=== PATIENT | male | born 1955 | race Caucasian/White ===

== ENCOUNTER 2019-06-10 08:37 | Observation (INO) | payer OTHER ==
[2019-06-10] VITALS (11 sets, daily range): BP systolic 115–130; BP diastolic 63–91
[~2019-06-10] VITALS: Ht 180.3 cm; Wt 124.4 kg
[~2019-06-10 08:37] MED LIST: ALEVE220 MG PO; NEURONTIN 300300 M1 PO; OMEPRAZOLE40 MG PO; SIMVASTATIN40 MG PO; SORINE 80 MG TA80 M1 PO; UNISOM25 MG PO
[2019-06-10] MEDS ORDERED: PROSCAR 5MG TABL5 MG PO (09:11)
[2019-06-10] MEDS ORDERED: ASPIR 8181 MG PO (09:13)
[2019-06-10 09:31] LABS: MCHC 34.1 g/dL (28.0-37.0); MCV 91.1 fL (80.0-100.0); MPV 8.3 fl. (7.2-11.1); RBC 5.16 mil/uL (4.50-6.00); RDW-CV 13.3 % (10.5-14.5); WBC 5.6 thou/uL (4.0-11.0)
[2019-06-10 09:44] LABS: ANION GAP 8 mmol/L (7-16); BUN 18 mg/dL (7-18); CALCIUM 8.8 mg/dL (8.5-10.1); CHLORIDE 107 mmol/L (98-107); CO2 25 mmol/L (21-32); CREATININE 1.1 mg/dL (0.6-1.3); GLUCOSE 110 mg/dL (70-99); POTASSIUM 4.1 mmol/L (3.5-5.1); SERUM ASSESSMENT Clear; SODIUM 140 mmol/L (136-145)
[2019-06-10 09:46] LABS: APTT 25.8 Seconds (25.0-31.3); INR 1.1; PROTIME 10.9 Seconds (9.20-11.50)
[2019-06-10 09:49] LABS: CHOLESTEROL 168 mg/dL (<200); HDL CHOLESTEROL 41 mg/dL (>40); LDL CHOLESTEROL 106 mg/dL (<100); TC:HDL 4.1 Ratio (Not establshd); TRIGLYCERIDE 109 mg/dL (<150); VLDL 22 mg/dL (<40)
--- NOTE | 2019-06-10 16:32 | EKG ---
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1955 Requested By: Dleta Gillespie Order Number: [id number] Reading MD: Aaron Torres Measurements Intervals [place] Rate: 70 P: [place]: QRS: -14 QRSD: 98 T: 18 QT: 432 QTc: 467 Interpretive Statements Atrial fibrillation Low voltage, precordial leads Compared to ECG 02/20/2016 15:48:14 Low QRS voltage now present Sinus rhythm no longer present Electronically Signed On 06-10-2019 16:32:38 CDT by Aaron Torres [email or web address] <ELECTRONICALLY SIGNED> By: Aaron Torres MD, [facility] 06/10/19 1632 0938 0938 Aaron Torres MD, [facility] /EPI
--- NOTE | 2019-06-10 16:34 | EKG ---
[place] [address] ELECTROCARDIOGRAM REPORT Name: DEVAN CRUZ Room: [address] M.R.#: [id number] Admission: 06/10/19 Attend Phys: Delta Gillespie MD, Discharge: Date of : 55 Report #: [id number] THIS REPORT FOR: //name// [facility] Test Date: 2019-06-10 Test Time: 14:40:37 Pat Name: DEVAN CRUZ Department: Room: [facility] Gender: M Access Assoc: : 1955 Requested By: Delta Gillespie Order Number: [id number] Adriano MD: Aaron Torres Measurements Intervals [place] Rate: 57 P: [place]: QRS: -5 QRSD: 91 T: 35 QT: 432 QTc: 421 Interpretive Statements Atrial fibrillation Low voltage, precordial leads Compared to ECG 02/20/2016 15:48:14 Low QRS voltage now present Sinus rhythm no longer present Electronically Signed On 06-10-2019 16:34:32 CDT by Aaron Torres [email or web address] <ELECTRONICALLY SIGNED> By: Aaron Torres MD, FAC 06/10/19 1634 1440 1440 Aaron Torres MD, [facility] /EPI
--- NOTE | 2019-06-10 18:21 | NUR ---
PT ARRIVED TO ROOM 215 AT APPROX 1610 FROM [employer]. PTS RIGHT GROIN SITE SOFT, NO BLEEDING OR HEMATOMA NOTED, DRESSING C/D/I. VSS, AFIB ON THE MONIOTR. REVIEWED HOME MEDS WITH PT AND , PT WANTS TO MAKE SURE HE GETS SOMETHING FOR SLEEP TONIGHT. PT DOES C/O SOME PAIN IN THE RIGHT GROIN/FLANK, HE STATES IT IS BETTER THAN IT WAS IN THE [employer]. DR BRITT AWARE. NO NEW ORDERS. PT A/O X4, ADMISSION HX/ASSESMENT DONE CHARTED. PT USES CALL LIGHT APPROPRIATLY. INSTRUCTED IMMOBALIZATION RIGHT LEG AND BEDREST UNTIL 1945. PT VERBALIZED UNDERSTANDING. WILL CONTINUE TO MONITOR.
[2019-06-11 00:17] VITALS: BP 115/75
[2019-06-11 04:00] VITALS: BP 134/86
--- NOTE | 2019-06-11 04:26 | NUR ---
ASSUMED PT CARE APPROX 1930. PT IS AWAKE AND ORIENTED X4. VSS ON ROOM AIR. PT IS TRACING AFIB ON TELE, REMAINED RATE CONTROLLED THROUGHOUT THIS SHIFT. PT DENIES CHEST PAIN AND PAIN ON POST CARDIAC CATH SITE (RIGHT GROIN), SITE REMAINED DRY AND INTACT. PT WAS ABLE TO SLEEP THROUGH THE NIGHT AFTER MELATONIN AND BENADRYL GIVEN PER JAN. CALL LIGHT WITHIN REACH. HOURLY ROUNDING DONE FOR PT SAFETY.
[2019-06-11 05:06] LABS: HEMATOCRIT 45.6 % (42.0-52.0); HEMOGLOBIN 15.1 gm/dL (14.0-18.0); MCH 30.7 pg (26.0-34.0); MCHC 33.2 g/dL (28.0-37.0); MCV 92.3 fL (80.0-100.0); MPV 8.1 fl. (7.2-11.1); RBC 4.94 mil/uL (4.50-6.00); RDW-CV 13.4 % (10.5-14.5); WBC 6.8 thou/uL (4.0-11.0)
[2019-06-11 05:23] LABS: ALBUMIN 3.5 g/dL (3.4-5.0); ALKALINE PHOSPHATASE 51 U/L (46-116); ANION GAP 5 mmol/L (7-16); BUN 16 mg/dL (7-18); CALCIUM 8.7 mg/dL (8.5-10.1); CHLORIDE 109 mmol/L (98-107); CO2 28 mmol/L (21-32); CREATININE 1.2 mg/dL (0.6-1.3); GLUCOSE 97 mg/dL (70-99); SGOT 14 U/L (15-37); SGPT 25 U/L (30-65); SODIUM 142 mmol/L (136-145); TOTAL BILIRUBIN 0.7 mg/dL (<0.1-1.0); TOTAL PROTEIN 6.3 g/dL (6.4-8.2); TROPONIN-I LEVEL <0.06 ng/mL (<0.06)
[2019-06-11 07:33] VITALS: BP 134/86
[2019-06-11 08:00] VITALS: BP 132/88
[2019-06-11 10:18] VITALS: BP 120/78
[2019-06-11 10:25] VITALS: BP 134/86
[2019-06-11] MEDS ORDERED: EFFIENT10 MG PO (10:34)
[2019-06-11] MEDS ORDERED: LIPITOR40 MG PO (10:35)
[2019-06-11] MEDS ORDERED: MELATONIN5 M1 PO (10:38)
--- NOTE | 2019-06-11 15:50 | CARD ---
[address] [address] CARDIAC CATH REPORT Name: DEVAN CRUZ Room: [address] Stephenie Ferguson#: [id number] Admission: 06/10/19 Attend Phys: Delta Gillespie MD, Discharge: 06/11/19 Date of : 55 Report #: [id number] THIS REPORT FOR: //name// APPROVED REPORT Study performed: 06/10/2019 11:53:20 Patient Details The patient is a 64 year-old male Event Personnel Delta Gillespie Content Creation Manager, Kath Restrepo RN Procurement Engineer, Jesús Garcia EXECUTIVE SERVICES ADMINISTRATOR Monitor, Viral Bourne EXECUTIVE SERVICES ADMINISTRATOR Scrub, Jess Saldaña RTR Monitor Procedures Performed Left heart catheterization left ventriculography selective coronary arteriography and percutaneous coronary intervention with deployment of drug-eluting stent in the proximal right coronary artery Indication Unstable angina Risk Factors Hypercholesterolemia Previous Procedures/Diagnoses Previous PCI Admission/Lab Medications/Medications given during procedure Aspirin, Platelet Aff. Inhib., Angiomax bolus and infusion Procedure Narrative The patient was brought electively to the Cardiac Catheterization Laboratory and was prepped and draped in a sterile manner. The right femoral was infiltrated with 2% Lidocaine subcutaneous anesthesia. A 6fr PINNACLE sheath was inserted into the right femoral artery. Coronary angiography was performed using coronary diagnostic catheters. The right coronary system was accessed and visualized with a JR4 6F catheter. The left coronary system was accessed and visualized with a JL4 6F catheter. The left ventricle was accessed and visualized with a STRAIGHT PIG catheter. Left ventricular/Aortic Valve gradient assessed via catheter pullback. Left ventriculogram was performed in CLARK projection. Pre-[place] [address] CARDIAC CATH REPORT Name: DEVAN CRUZ Room: [address] Stephenie Ferguson#: [id number] Admission: 06/10/19 Attend Phys: Delta Gillespie MD, Discharge: 06/11/19 Date of : 55 Report #: [id number] was performed . Closure device was deployed with a 6 Fr Angioseal STS. The patient tolerated the procedure well and there were no complications associated with the procedure. There was no hematoma. Intraoperative Conscious Sedation Sedation start time: 12:28 Case end Time: 13:18 Fentanyl 100 mcg Versed 3 mg Fluoro Time: 11.3 minutes Dose: DAP 329701 cGycm2 2137 mGy Contrast Type and Amount: Visipaque 160 ml Coronary Angiography The patient's coronary anatomy is right dominant. Diagnostic Cath Left Main 0% narrowing LAD 30% mid LAD narrowing with widely patent mid LAD stent Circumflex 0% narrowing Right Coronary Modest sized dominant vessel with 80% proximal stenosis Hemodynamics The aortic pressure is 125/69 mmHg with a mean of 92 mmHg. The left ventricular pressure is 114/4 mmHg with a mean of mmHg. The left ventricular end diastolic pressure is 14 mmHg. There was no gradient across the aortic valve upon pullback. PCI Technique Lesion Anticoagulation was achieved with Angiomax. Patient was preloaded with Angiomax IV 18 ml. Percutaneous coronary intervention was performed on the proximal right coronary artery. The lesion stenosis prior to intervention was 80% with MOISE 3 flow. A 6F JR 4.0 Guide Catheter was used to engage the RIGHT ostium. A IG: BMW 190cm Interventional Guidewire was used to cross the lesion. BALLOON DILATION A Balloon catheter Trek RX 2.5 X 8 was inserted and inflated up to 14.00atm for 14seconds. Additional Inflation: 17.00atm for 9seconds. STENT DEPLOYMENT A drug-eluting stent Xience Nadine 2.75X8mm [place] [address] CARDIAC CATH REPORT Name: DEVAN CRUZ [address] [id number] Admission: 06/10/19 Attend Phys: Delta Gillespie MD, Discharge: 06/11/19 Date of : 55 Report #: [id number] up to 12.00atm for 14seconds. Additional Inflation: 18.00atm for 9seconds. Additional Inflation: 20.00atm for 11seconds. Final angiography reveals 10 % stenosis with MOISE 3 flow. Conclusion #1 significant coronary artery disease characterized by the following: A 30% mid LAD narrowing with widely patent mid LAD stent B 0 percent narrowing of the left main coronary artery and nondominant circumflex C 80% narrowing of the proximal portion of the dominant right coronary artery #2 normal left ventricular systolic function, estimate ejection fraction being 65% #3 normal left-sided hemodynamics study #4 successful percutaneous coronary intervention with deployment of drug-eluting stent at site of 80% proximal right coronary stenosis with 10% residual narrowing and MOISE-3 flow to the distal vessel. Recommendations Cardiac Risk Reduction Program Aggressive Medical Therapy Medications Administered Aspirin (any) Prasugrel Diagnostic Cath Approved by: Delta Gillespie MD Date/Time: 06/11/2019 15:49:11 <ELECTRONICALLY SIGNED> By: Delta Gillespie MD, [facility] 06/11/19 1550 1550 1550Delta Gillespie MD, FAC /INF
--- NOTE | 2019-06-11 16:44 | EKG ---
[place] [address] ELECTROCARDIOGRAM REPORT Name: NANCYDEVAN Jere Room: [address] M.R.#: [id number] Admission: 06/10/19 Attend Phys: Delta Gillespie MD, Discharge: 06/11/19 Date of : 55 Report #: [id number] THIS REPORT FOR: //name// 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[id number] : 1955 Requested By: Delta Gillespie Order Number: [id number] Reading MD: Delta Gillespie Measurements Intervals [place] Rate: 69 P: [place]: QRS: -13 QRSD: 94 T: 17 QT: 455 QTc: 488 Interpretive Statements Atrial fibrillation Low voltage, precordial leads Borderline prolonged QT interval Baseline wander in lead(s) II,III,aVF,V1 Compared to ECG 06/10/2019 14:40:37 No significant changes Electronically Signed On 06-11-2019 16:44:26 CDT by Delta Gillespie [email or web address] <ELECTRONICALLY SIGNED> By: Delta Gillespie MD, [facility] 06/11/19 1644 0528 0528 Delta Gillespie MD, [facility] /EPI
--- NOTE | 2019-06-12 12:18 | D ---
[address] [address] DISCHARGE SUMMARY Name: DEVAN CRUZ Room: [address] Stephenie Ferguson#: [id number] Admission: 06/10/19 Attend Phys: Delta Gillespie MD, Discharge: 06/11/19 Date of : 55 Report #: [id number] THIS REPORT FOR: //name// CC: Delta Montalvo DATE OF SERVICE: 06/11/2019 DISCHARGED ROOM: #[facility]. FINAL DISCHARGE DIAGNOSES: 1. Unstable angina. 2. Coronary artery disease. 3. Status post percutaneous coronary intervention of the right coronary artery. 4. Status post remote percutaneous coronary intervention of the left anterior descending. 5. Hypertension. 6. Hyperlipidemia. 7. Paroxysmal atrial fibrillation, status post ablation. PROCEDURES: On 06/10/2019 -- left heart catheterization, left ventriculography, selective coronary arteriography and percutaneous coronary intervention with deployment of drug-eluting stent in the proximal right coronary artery. The patient is a pleasant 64-year-old male who is 7 years status post stenting of the LAD and diagonal. Recently, he has noted recrudescence of chest pain similar to his prior angina following a pattern of increased frequency and instability affecting clinical instability. He has a history of paroxysmal atrial fibrillation, status post ablation, but denies awareness of any rapid or irregular pulse of late. He has underlying hypertension and hyperlipidemia. In this context, I performed cardiac catheterization on 06/10/2019 which revealed normal left ventricular function with coronary artery disease characterized by a widely patent LAD and diagonal stents and 80% proximal right coronary stenosis. I deployed one drug-eluting stent in the proximal right coronary artery with 10% residual narrowing and MOISE 3 flow of the distal vessel. Troponin was less than 0.06 and the patient did well clinically with good hemostasis at the right femoral site of catheterization. LABORATORY DATA: On 06/11/2019; revealed a hemoglobin of 15.1, platelet count of 173,000 with white blood cell count 6800. Sodium 142, potassium 4.0, BUN 16, creatinine 1.2, glucose 97 mg percent. The patient [place] [address] DISCHARGE SUMMARY Name: DEVAN CRUZ Room: [address] Phyllis#: [id number] Admission: 06/10/19 Attend Phys: Delta Gillespie MD, Discharge: 06/11/19 Date of : 55 Report #: [id number] with good hemostasis at the right femoral site of catheterization. MEDICATIONS: He was discharged to home on the following medications: Effient 10 mg p.o. daily, aspirin 81 mg p.o. daily, Lipitor 20 mg daily and sotalol 80 mg b.i.d. Given the recurrence of asymptomatic atrial fibrillation, I suspect he will require a re-anticoagulation as an outpatient and this was discussed with the patient. I would plan transitory therapy with dual antiplatelet therapy and Eliquis with subsequent discontinuation of aspirin and a longer term therapy with Eliquis and prasugrel or Effient. Thus, the patient was discharged to home in stable condition on the aforementioned medications with followup with my nurse practitioner, Ami Valencia, on 06/17/2019 at 1130 at [facility]. <ELECTRONICALLY SIGNED> By: Delta Gillespie MD, FACC 06/12/19 1218 1317 [id number] Gillespie MD, FACC /nt
== END 2019-06-11 10:45 | disposition home or self-care (01) ==
LOC: M.CL 08:37 → M.TBA-CV 13:31 → M.2W 16:25
PROVIDERS: ADMIT Internal Medicine
DX: I25.110 Atherosclerotic heart disease of native coronary artery with unstable angina pectoris (principal); I10 Essential (primary) hypertension; E78.5 Hyperlipidemia, unspecified; I48.0 Paroxysmal atrial fibrillation; Z98.61 Coronary angioplasty status